=== PATIENT | female | born 2000 | race American Indian/Alaskan Native ===

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

== ENCOUNTER 2021-09-20 01:07 | Emergency (ER) | payer MEDICAID ==
[2021-09-20 01:21] VITALS: BP 167/100
== END 2021-09-20 04:00 ==
LOC: ED 01:07
DX: K08.89 Other specified disorders of teeth and supporting structures (principal); Z53.21 Procedure and treatment not carried out due to patient leaving prior to being seen by health care provider